=== PATIENT | female | born 1985 | race Caucasian/White ===

== ENCOUNTER 2016-10-08 19:44 | Emergency (ER) | payer OTHER ==
[~2016-10-08] VITALS: Ht 162.6 cm; Wt 79.4 kg
[~2016-10-08 19:44] MED LIST: BACTRIM DS 8001 TAB PO; BIAXIN500 MG PO; BIRTH CONTROL PO; CEFTIN500 MG PO; DILAUDID4 MG PO; LABETALOL 100M100 MG PO; MEDROL 4MG. DOSE4 MG PO; MONONESSA 35 MC1 TA1 PO; NICODERM C14 MG/24 H TD; PERCOCET 5/3251 EACH PO; PREDNISONE 20MG20 MG PO; PRENATAL CAPLE1 EACH PO; SEASONIQUE1 TAB PO; TESSALON PERLE100 M1 PO; TYLENOL W/CODEI1 TA2 PO; Tramadol HCl50 MG PO; VITAMIN D31000 IU PO; ZOFRAN4 MG PO
[2016-10-08] MEDS ORDERED: NEXPLANON68 MG ID (19:59)
--- OUTSIDE RECORDS SUMMARY | 2016-10-08 20:13 | External Medical Summary Rpt ---
Author Author [employer] Organization [employer] Address Unknown Phone Unavailable Purpose Continuity of Care Document - through 2016
--- OUTSIDE RECORDS SUMMARY | 2016-10-08 20:13 | External Medical Summary Rpt ---
Demographics Preferred Language Malagasy Marital Status Unknown Adventism Affiliation Unknown Race Unknown Ethnic Group Unknown Author Author , RIVKA TINEO Address Unknown Phone Immunization No patient found.
--- OUTSIDE RECORDS SUMMARY | 2016-10-08 20:13 | External Medical Summary Rpt ---
Author Author LIAT Address Unknown Phone [email or web address] Purpose Continuity of Care Document - 07-08-2016 through 2016
--- OUTSIDE RECORDS SUMMARY | 2016-10-08 20:13 | External Medical Summary Rpt ---
Author Author [employer], [employer] Organization [employer] Address Unknown Phone Unavailable Results CBC W Auto Differential panel in Blood Observa Value Referen Units Interpr Notes Date tion ce etation Range Basophils 0 - 0.2 K/MM3 Normal No July 08 informati 2016 9:10 [#/volume on in AM ] in source Blood by data Automated count Basophils 0.1 - 2.0 % Normal No July 08 informati 2016 9:10 leukocyte on in AM s in source Blood by data Automated count Eosinophi 0.0 - 0.4 K/mm3 Normal No July 08 ls informati 2016 9:10 [#/volume on in AM ] in source Blood by data Automated count Eosinophi 0.1 - % Normal No July 08 ls/100 12.0 informati 2016 9:10 leukocyte on in AM s in source Blood by data Automated count Granulocy 1.8 - 7.8 K/mm3 Normal No July 08 adán informati 2016 9:10 [#/volume on in AM ] in source Blood by data Automated count Granulocy 37.0 - % Normal No July 08 adán/100 80.0 informati 2016 9:10 leukocyte on in AM s in source Blood by data Automated count Hematocri 37.0 - % Normal No July 08 t [Volume 47.0 informati 2016 9:10 on in AM Fraction] source of Blood data Hemoglobi 12.2 - g/dL No July 08 n 16.2 informati informati 2016 9:10 [Mass/vol on in on in AM ume] in source source Blood data data Lymphocyt 0.7 - 4.5 K/mm3 Normal No July 08 es informati 2016 9:10 [#/volume on in AM ] in source Unspecifi data ed specimen by Automated count Lymphocyt 10 - 50.0 % Normal No July 08 es informati 2016 9:10 [#/volume on in AM ] in source Unspecifi data ed specimen by Automated count Erythrocy 27 - 31.2 pg Normal No May 15 te mean informati 2016 9:10 corpuscul on in AM ar source hemoglobi data n [Entitic mass] Erythrocy 31.8 - g/dl Normal No July 08 te mean 35.4 informati 2016 9:10 corpuscul on in AM ar source hemoglobi data n concentra tion [Mass/vol ume] by Automated count Erythrocy 82.2 - fl Normal No July 08 te mean 97.8 informati 2016 9:10 corpuscul on in AM ar volume source [Entitic data volume] by Automated count Monocytes 0.1 - 1.0 K/mm3 Normal No July 08 inform2016 9:10 [#/volume on in AM ] in source Blood by data Automated count Monocytes 1.7 - 9.3 % Normal No July 08 /100 informati 2016 9:10 leukocyte on in AM s in source Blood by data Automated count Platelet 7.4 - fl Low No July 08 mean 10.4 informati 2016 9:10 volume on in AM [Entitic source volume] data in Blood by Automated count Platelets 142 - 424 K/mm3 Normal No July 08 inform2016 9:10 [#/volume on in AM ] in source Blood data Erythrocy 4.2 - 5.4 M/mm3 Normal No July 08 adán informati 2016 9:10 [#/volume on in AM ] in source Amniotic data fluid Erythrocy 11.5 - % Normal No July 08 te 17.5 informati 2016 9:10 distribut on in AM ion width source [Entitic data volume] by Automated count Leukocyte 4.8 - K/MM3 Normal No July 08 s 10.8 informati 2016 9:10 [#/volume on in AM ] in source Blood data Comprehensive metabolic 2000 panel in Serum or Plasma Observa Value Referen Units Interpr Notes Date tion ce etation Range Albumin/G 1.1 - 1.8 No Normal No July 08 lobulin informati informati 2016 9:10 [Mass on in on in AM ratio] in source source Serum or data data Plasma Albumin 3.4 - 5.0 gm/dL Normal No July 08 [Mass/vol informati 2016 9:10 ume] in on in AM Serum or source Plasma data Alkaline 46 - 116 U/L Normal No July 08 phosphata informati 2016 9:10 se on in AM [Enzymati source c data activity/ volume] in Serum or Plasma Bilirubin 0.2 - 1.0 mg/dL Normal No July 08 .total informati 2016 9:10 [Mass/vol on in AM ume] in source Serum or data Plasma Urea 7 - 18 mg/dL Normal No July 08 nitrogen informati 2016 9:10 [Mass/vol on in AM ume] in source Serum or data Plasma Calcium 8.5 - mg/dL Normal No July 08 [Mass/vol 10.1 informati 2016 9:10 ume] in on in AM Serum or source Plasma data Chloride 98 - 107 mmoL/L Normal No July 08 [Moles/vo informati 2016 9:10 lume] in on in AM Serum or source Plasma data Carbon 21.0 - mmoL/L Normal No July 08 dioxide, 32.0 informati 2016 9:10 total on in AM [Moles/vo source lume] in data Serum or Plasma Creatinin 0.55 - mg/dL Normal No July 08 e 1.02 informati 2016 9:10 [Mass/vol on in AM ume] in source Serum or data Plasma Estimated 59- ML/MIN No REFERENCE July 08 informati RANGE: 2017 9:10 glomerula on in >60 AM r source ML/MIN/1. filtratio data 73 SQUARE n rate METERSIf (GF this patient is -A merican, then multiply theresult by 1.210. Globulin 1.3 - 3.2 gm/dL High No July 08 [Mass/vol informati 2016 9:10 ume] in on in AM Serum source data Glucose 74 - 106 mg/dL Normal No July 08 [Mass/vol informati 2016 9:10 ume] in on in AM Serum or source Plasma data Potassium 3.5 - 5.1 mmoL/L Normal No July 08 informati 2016 9:10 [Moles/vo on in AM lume] in source Serum or data Plasma Sodium 136 - 145 mmoL/L Normal No July 08 [Moles/vo informati 2016 9:10 lume] in on in AM Serum or source Plasma data Aspartate 15 - 37 U/L Normal No July 08 informati 2017 9:10 aminotran on in AM sferase source [Enzymati data c activity/ volume] in Serum or Plasma Alanine 12 - 78 U/L Normal No July 08 aminotran informati 2016 9:10 sferase on in AM [Enzymati source c data activity/ volume] in Serum or Plasma Protein 6.4 - 8.2 gm/dL High No July 08 [Mass/vol informati 2017 9:10 ume] in on in AM Serum or source Plasma data Lipid 1996 panel in Serum or Plasma Observa Value Referen Units Interpr Notes Date tion ce etation Range Cholester < 200 mg/dL No No June 15 ol informati informati 2016 9:10 [Moles/vo on in on in AM lume] in source source Unspecifi data data ed specimen Cholester 40 - 60 MG/DL Normal No July 08 ol in HDL informati 2016 9:10 on in AM [Mass/vol source ume] in data Serum or Plasma Cholester 0 - 130 mg/dL Normal No July 08 ol in LDL informati 2016 9:10 on in AM [Mass/vol source ume] in data Serum or Plasma by keyon on Triglycer 30 - 200 mg/dL Normal No July 08 zeeshan informati 2016 9:10 [Moles/vo on in AM lume] in source Serum or data Plasma Cholester 0 - 40 No Normal No June 15 ol in informati informati 2016 9:10 VLDL on in on in AM [Mass/vol source source ume] in data data Serum or Plasma Thyrotropin [Units/volume] in Serum or Plasma Observa Value Referen Units Interpr Notes Date tion ce etation Range Thyrotrop 0.358 - uIU/ml Normal No June 15 in 3.740 informati 2016 9:10 [Units/vo on in AM lume] in source Serum or data Plasma
--- OUTSIDE RECORDS SUMMARY | 2016-10-08 20:13 | External Medical Summary Rpt ---
Demographics Preferred Language Czech Marital Status Unknown Anglican Affiliation Unknown Race Unknown Ethnic Group Unknown Author Author , RIVKA TINEO Address Unknown Phone Immunization No patient found.
--- OUTSIDE RECORDS SUMMARY | 2016-10-08 20:13 | External Medical Summary Rpt ---
Author Author LIAT Address Unknown Phone [email or web address] Purpose Continuity of Care Document - 07-08-2016 through 2016
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
[2016-10-08] MEDS ORDERED: PREDNISONE 20MG20 MG PO (22:30)
[2016-10-08] MEDS ORDERED: NORCO 325 MG-51 TAB PO (22:30)
[2016-10-08 22:44] VITALS: BP 145/76
--- NOTE | 2016-10-09 09:55 | RADIOLOGY REPORT PS360 ---
CT LUMBAR SPINE W/O CONTRAST CLINICAL INDICATION: Low back pain with right-sided low back pain radiating to the right leg after lifting injury TENDERNESS ORDERING PHYSICIAN: Dariel Durant MD PATIENT AGE: 31 years COMPARISON: 11/09/2014 CT scan TECHNIQUE:Axial, sagittal, and coronal images are generated and reviewed without contrast FINDINGS: Normal alignment. No fracture or dislocation. No obvious spinal stenosis or large disc herniation. The disc spaces are well-preserved. No significant degenerative change. 2 cm right ovarian cyst MRI may be of further value for more subtle abnormalities. Prior cholecystectomy. IMPRESSION: No acute finding, unremarkable CT of the lumbar spine
== END 2016-10-08 22:45 | disposition home or self-care (01) ==
LOC: ER 19:44
DX: S39.012A Strain of muscle, fascia and tendon of lower back, initial encounter (principal); X50.0XXA Overexertion from strenuous movement or load, initial encounter; Y92.69 Other specified industrial and construction area as the place of occurrence of the external cause; Y99.0 Civilian activity done for income or pay
CPT/HCPCS: J2405